=== PATIENT | male | born 1975 | race Caucasian/White ===

== ENCOUNTER 2022-01-03 10:57 | Emergency (ER) | payer BC ==
[~2022-01-03] VITALS: Ht 177.8 cm; Wt 74.8 kg
--- NOTE | 2022-01-03 12:46 | ED Lower Extremity ---
General Chief Complaint: Lower Extremity Stated Complaint: SYMPTOMS OF DVT, HX OF DVT,FLU LIKE SYMPTOMS Nursing Triage Note: PT AMB TO [facility] AND IS A/O X4. PT STATED THAT HE HAS UPPER RIGHT LEG PAIN THAT STARTED AT 0630 THIS MORNING. HE STATED THAT HE HAS A HX OF DVTs AND PE. PT DESCRIBLED THE PAIN TO BE LIKE A KAITY HORSE. PT HAS CALL LIGHT IN REACH AND BED IN LOWEST SETTING. Source: patient Exam Limitations: no limitations History of Present Illness Date Seen by Provider: Jan 03, 2022 Time Seen by Provider: 12:02 Initial Comments Patient to the ER by private conveyance chief complaint of right lower extremity swelling up his right thigh with pain for 1 day. He has been sick feeling flulike symptoms for the week prior. Chills but no fever. Sinus congestion. No nausea vomiting or diarrhea. He has a history of DVT 8 years ago after an ankle fracture in the ipsilateral leg. He is not on blood thinners at this time. 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 He is also on Lipitor and blood pressure medicine. No chest pain shortness of air. His mother went in the hospital today for COVID-19. He has been tested with [id number] COVID swabs twice in the past week with the last one being 2 days ago. Both were negative. Allergies and Home Medications Allergies Coded Allergies: No Known Drug Allergies (Unverified , 01/03/22) Patient Home Medication List Home Medication List Reviewed: Yes Apixaban (Eliquis) 5 Mg Tablet, 5 MG PO BID Prescribed by: PIERRE GALLOWAY on 01/03/22 1256 Ondansetron (Ondansetron Odt) 4 Mg Tab.rapdis, 4 MG PO Q6H PRN for NAUSEA/VOMITING Prescribed by: PIERRE GALLOWAY on 01/03/22 1256 Review of Systems Constitutional: No chills, No fever, No malaise EENTM: No ear discharge, No ear pain Respiratory: No cough, No short of breath Cardiovascular: No chest pain, No edema Gastrointestinal: No abdominal pain, No constipation, No diarrhea, No nausea Genitourinary: No discharge, No dysuria All Other Systems Reviewed Negative Unless Noted: Yes Past Hojarao-Guhwmo-Cbqmmb Hx Patient Social History Tobacco Use?: No Substance use?: No Alcohol Use?: Yes Alcohol type: Beer Alcohol Frequency: Couple times a week Pt feels they are or have been: No Immunizations Up To Date Influenza Vaccine Up-to-Date: No; Not Current Physical Exam Vital Signs Vital Signs - First Documented 01/03/22 11:40 Temp 36.8 Pulse 89 Resp 17 B/P (MAP) 135/94 (108) Pulse Ox 97 O2 Delivery Room Air Capillary Refill : Height, Weight, BMI Height: '" Weight: lbs. oz. kg; 23.00 BMI Method: General Appearance: WD/WN, no apparent distress HEENT: PERRL/EOMI, pharynx normal Neck: full range of motion, supple, normal inspection Cardiovascular: normal peripheral pulses, regular rate, rhythm Respiratory: no respiratory distress, no accessory muscle use Gastrointestinal: normal bowel sounds, non tender Hips: bilateral hip non-tender, bilateral hip normal inspection, bilateral hip normal range of motion Legs: left leg non-tender, left leg normal inspection; bilateral leg normal range of motion, bilateral leg no evidence of injury; right leg pain, right leg soft tissue tenderness, right leg swelling Neurologic/Psychiatric: alert, normal mood/affect, oriented x 3 Progress/Results/Core Measures Results/Orders Lab Results Laboratory Tests Test 01/03/22 12:53 Range/Units SARS-CoV-2 RNA (RT-PCR) Not Detected Not Detecte My Orders Orders - PIERRE GALLOWAYid 19 Inhouse Test (01/03/22 11:52) Us Venous Lower Ext Rt (01/03/22 12:02) Apixaban Tablet (Eliquis Tablet) (01/03/22 13:00) Medications Given in ED Current Medications Medications Dose Ordered Sig/Christine Route Start Time Stop Time Status Last Admin Dose Admin Apixaban 5 mg ONCE ONCE PO 01/03/22 13:00 01/03/22 13:08 DC 01/03/22 13:13 5 MG Vital Signs/I&O 01/03/22 01/03/22 11:40 13:15 Temp 36.8 36.8 Pulse 89 87 Resp 17 17 B/P (MAP) 135/94 (108) 130/89 Pulse Ox 97 98 O2 Delivery Room Air Room Air Blood Pressure Mean: 108 Progress Progress Note : Time: 12:43 Progress Note COVID swab and ultrasound of the right lower extremity demonstrates DVT. We will put him on Eliquis. Diagnostic Imaging Diagonstic Imaging: Ultrasound Plain Films/CT/US/NM/MRI: leg (r) Comments pos for DVT. [facility] [place] NAME: CARINE SILVA [facility] REC#: [id number] PT STATUS: DEP ER : [id number] PHYSICIAN: PIERRE GALLOWAY MD ADMIT DATE: 01/03/22/ER Signed Date of Exam:01/03/22 US VENOUS LOWER EXT RT INDICATION: Right lower extremity pain. History of deep venous thrombosis 7-8 years ago. TECHNIQUE: Multiple Real-time grayscale images were obtained over the right lower extremity in various projections bilaterally. Additional duplex Doppler and color Doppler images were also obtained. CORRELATION STUDY: None FINDINGS: Findings are positive for deep venous thrombosis of the right leg. There is what appears to be presence of occlusive clot within the peripheral extending into the mid aspect of the femoral vein of thigh becoming partially occlusive more centrally. The remaining deep venous structures including the popliteal vein and common femoral vein are unremarkable. The visualized veins in the calf are unremarkable. No soft tissue fluid collection. IMPRESSION: Positive for deep venous thrombosis of the right leg, predominantly involving the femoral vein of the thigh. Findings were provided by the planer setup operator at time of imaging. Dictated by: Dictated on workstation # [id number] Dict: 01/03/22 1256 Trans: 01/03/22 1334 [id number] Interpreted by: SALVADOR MERINO DO Electronically signed by: SALVADOR MERINO DO 01/03/22 1334 Reviewed: Reviewed by Me Departure Impression Primary Impression: COVID-19 Additional Impression: DVT (deep venous thrombosis) Qualified Codes: I82.411 - Acute embolism and thrombosis of right femoral vein Disposition: 01 HOME, SELF-CARE Condition: Stable Departure-Patient Inst. Decision time for Depature: 12:54 Referrals: NO,LOCAL PHYSICIAN (PCP/Family) Primary Care Physician Patient Instructions: COVID-19 (DC), Deep Vein Thrombosis (DVT) ED Add. Discharge Instructions: Eliquis 5 mg twice a day for at least 6 months. Follow-up with your electrician locomotive to see how long it needs to be taken and get refills. Discuss with them whether any further work-up is indicated at this time. Return to the ER promptly if you are having significantly worsening shortness of breath, chest pain, coughing up bloody sputum or other worrisome symptoms. Tylenol 1000 mg every 8 hours as needed for body aches fever or chills. Avoid NSAIDs such as aspirin, Aleve, naproxen, ibuprofen, Motrin, etc. as these will reduce the efficacy of Eliquis. Return to the nearest ER if you are unable to maintain oxygen saturations above 90% while at rest. All discharge instructions reviewed with patient and/or family. Voiced understanding. Scripts Ondansetron (Ondansetron Odt) 4 Mg Tab.rapdis 4 MG PO Q6H PRN for NAUSEA/VOMITING, #8 TAB 0 Refills Prov: PIERRE GALLOWAY 01/03/22 Apixaban (Eliquis) 5 Mg Tablet 5 MG PO BID for 30 Days, #60 TAB 0 Refills Prov: PIERRE GALLOWAY 01/03/22 PIERRE GALLOWAY Jan 03, 2022 12:46
[2022-01-03] MEDS ORDERED: ONDA4TAB11 PO (12:56)
[2022-01-03] MEDS ORDERED: APIX5TAB PO (12:56)
[2022-01-03] MEDS ORDERED: APIXABAN 5 MG (ELIQUIS) TABLET PO ONE (13:00)
--- NOTE | 2022-01-03 13:01 | Diagnostic Imaging Report ---
INDICATION: Right lower extremity pain. History of deep venous thrombosis 7-8 years ago. TECHNIQUE: Multiple Real-time grayscale images were obtained over the right lower extremity in various projections bilaterally. Additional duplex Doppler and color Doppler images were also obtained. CORRELATION STUDY: None FINDINGS: Findings are positive for deep venous thrombosis of the right leg. There is what appears to be presence of occlusive clot within the peripheral extending into the mid aspect of the femoral vein of thigh becoming partially occlusive more centrally. The remaining deep venous structures including the popliteal vein and common femoral vein are unremarkable. The visualized veins in the calf are unremarkable. No soft tissue fluid collection. IMPRESSION: Positive for deep venous thrombosis of the right leg, predominantly involving the femoral vein of the thigh. Findings were provided by the item processor at time of imaging. Dictated by: Dictated on workstation # [id number]
[2022-01-03 13:15] VITALS: BP 130/89
== END 2022-01-03 13:16 | disposition home or self-care (01) ==
LOC: ER 11:01
DX: U07.1 COVID-19 (principal); I82.401 Acute embolism and thrombosis of unspecified deep veins of right lower extremity; Z79.899 Other long term (current) drug therapy
CPT/HCPCS: 87636